=== PATIENT | female | born 1990 | race Caucasian/White ===

== ENCOUNTER 2018-02-24 06:36 | Inpatient (IN) | payer OTHER ==
--- NOTE | 2018-02-23 15:13 | PREOPHP ---
Date of Admission: 02/24/2018 History Of Present Illness: Ms. Willoughby is a 27-year-old female, 4, para 2-0- 1-2, who will be 40 weeks gestation tomorrow. She has been followed by me during this with out significant complications. Past Medical History: Please see record. Family History: Please see record. Review of Systems: She reports no recent cough, cold, fever, or chills. No recent nausea or vomiting. She denies any b reast lumps. She denies any bowel or bladder issues. She has been having a few contractions. Infan t has not been quite as active. Physical Examination: General: Reveals female, in no apparent distress. Neck: Supple without adenopathy or thyromegaly. Lungs: Clear. Cardiac: Regular rate and rhythm without murmurs. Breasts: Not examined. Abdomen: Shows an estimated weight of approximately 7+ pounds. Pelvic: Cervix noted to be 1+ cm, 50% effaced, vertex at -1 to -2 station, vertex presentation. Extremities: No cyanosis, clubbing, or edema. Impression: Term with favorable cervix. The patient will be admitted for induction of lab or. Risks are described and she has signed a permit in my presence. ORAL/ANDRA Voice ID: [id number]
[2018-02-24] MEDS ORDERED: Ringers Lactate 1,000 ML IV PRN (06:38)
[2018-02-24] MEDS ORDERED: PROMETHAZINE 25 MG/ML VIAL IV PRN (06:57)
[2018-02-24] MEDS ORDERED: BUTORPHANOL 1 MG/ML INJ IV PRN (06:57)
[2018-02-24] MEDS ORDERED: Ringers Lactate 1,000 ML IV SCH (07:00)
[2018-02-24] MEDS ORDERED: OXYTOCIN/LR 20 UNIT/1,000 ML BAG IV SCH ×2 (07:00→13:00)
[2018-02-24 07:37] LABS: RPR Titer ND
[2018-02-24 07:51] LABS: Absolute Lymphocytes (CBC) 1.8 K/uL (0.7-4.9); Absolute Monocytes 0.7 K/uL (0.1-1.3); Absolute Neutrophil 7.5 K/uL (1.8-8.0); Basophils % 0.3 % (0-1.3); Hematocrit 36.6 % (36.0-45.0); Lymphocytes % 17.9 % (15.3-44.8); MCH 28.5 pg (27.0-35.0); MCV 85.7 fL (80-100); MPV 8.8 fL (7.6-11.3); Monocytes % 6.8 % (3.3-12.3); RBC Red Blood Cell Count 4.27 M/uL (3.86-4.86)
[2018-02-24 07:53] LABS: Urine Appearance CLOUDY; Urine Bilirubin NEGATIVE (NEG); Urine Blood NEGATIVE (NEG); Urine Color YELLOW; Urine Glucose NEGATIVE (NEG); Urine Protein NEGATIVE (NEG); Urine Specific Gravity 1.015 (1.005-1.030); Urine Urobilinogen 0.2 mg/dL (0.2-1.0); Urine pH 6.5 (5.0-7.0)
[2018-02-24 08:00] LABS: Urine Microscopic Reflex ORDER UMIC
[2018-02-24 08:25] LABS: Urine Bacteria >50 /HPF (<20); Urine Culture Reflex Order NOT NEEDED; Urine RBC <5 /HPF (NONE SEEN)
--- NOTE | 2018-02-24 08:33 | P.PN ---
Date of Service: 02/24/18 Cx noted to be 1+cm, 50% , vtx minus one station. FSE applied, clear fluid noted, reactive FHT's, ctx now q3 minutes.
[2018-02-24] MEDS ORDERED: ROPIVACAINE HCL 100 ML IV PRN (08:34)
[2018-02-24] MEDS ORDERED: ROPIVACAINE HCL 0.2% 20ML AMP SQ ONE (08:34)
[2018-02-24] MEDS ORDERED: FENTANYL CITR 100 MCG/2 ML IV ONE (08:34)
[2018-02-24 08:40] VITALS: BMI 28.8
[2018-02-24] MEDS ORDERED: LIDOCAINE 1% 20 ML MDV ONE (11:09)
[2018-02-24] MEDS ORDERED: CARBOPROST TROME 250 MCG/ML IM ONE (11:10)
[2018-02-24] MEDS ORDERED: METHYLERGONOVINE 0.2MG/ML AMP IM ONE (11:10)
[2018-02-24] MEDS ORDERED: ROPIVACAINE HCL 20 ML ONE (12:36)
[2018-02-24] MEDS ORDERED: ONDANSETRON 4 MG (ODT) TAB PO PRN (12:58)
[2018-02-24] MEDS ORDERED: METHYLERGONOVINE 0.2MG/ML AMP IM PRN (12:58)
[2018-02-24] MEDS ORDERED: METHYLERGONOVINE 0.2 MG TAB PO PRN (12:58)
[2018-02-24] MEDS ORDERED: ACETAMINOPHEN 500 MG TAB PO PRN (12:58)
[2018-02-24] MEDS ORDERED: CARBOPROST TROME 250 MCG/ML IM PRN (12:58)
--- NOTE | 2018-02-24 13:02 | P.BOP ---
Preoperative diagnosis: 40wk Postoperative diagnosis: Same, delivery viable female Estimated blood loss: Less than 400ml Anesthesia: epidural Complications: Other (Shoulder dystocia) Transferred to: Other (271) Condition: Good
[2018-02-24] MEDS: IBUPROFEN 200 MG TAB PO PRN (20:13)
[2018-02-25 01:03] LABS: RPR (Rapid Plasma Reagin) NON-REACT (NON-REACT)
--- NOTE | 2018-02-25 05:20 | DN ---
Surgeon: Chato Yi MD Ms. Willoughby is a 27-year-old female, 3, para 1-0-1-1, at 40 weeks gestation, admitted f or an elective induction of labor secondary to term with favorable cervix. She was noted t o be 1+ cm on admission. After artificial rupture of membrane, she had a first stage labor of 4 hour s and 8 minutes, second stage of labor of 27 minutes. She delivered, by spontaneous controlled vagin al delivery, an 8 pound 9 ounce female infant, 9, 9 with moderate shoulder dystocia, treated wi th Renetta maneuver. was delivered. Cord was noted to be around the neck x1. After delaye d cord clamping this was clamped, cut, and infant placed on mother's upper abdomen. Cord blood was o btained. The placenta was spontaneously expelled and appeared to be intact. Intrauterine examinatio n revealed no retained placental fragments. The patient suffered no lacerations. Estimated total bl ood loss was less than 300 cc. The patient had epidural catheter placed early and received good bene fit from this. ORAL/ANDRA Voice ID: [id number] Report ID: [id number]
[2018-02-25] MEDS: IBUPROFEN 200 MG TAB PO PRN (06:01)
[2018-02-25 13:30] VITALS: BP 119/57; TEMP 97.6
--- NOTE | 2018-02-26 05:27 | DS ---
Date of Discharge: 02/25/2018 Final Hospital Discharge Diagnosis: A 40-week delivered. Complications: Shoulder dystocia, treated with Renetta maneuver. Procedures: Artificial rupture of membranes, placement of epidural catheter, spontaneous controlled vaginal delivery of viable male . Hospital Course: The patient is a 27-year-old female, 3, para 2-0-0-2 at 40 weeks gestation, admitted for elective induction. She had a vaginal delivery of 8 pounds 9 ounces male inf ant, 9 and 9 with shoulder dystocia noted at the time of delivery treated with Renetta maneuv er. Lab work obtained. She was dismissed on first day, ambulatory on a select diet with routine post vaginal delivery activity restrictions. Lab work included an admission of hemoglobin an d hematocrit of 12.2 and 36.6, dismissal hematocrit of 32.5. She is Rh positive blood type, rubella immune. She was dismissed to take ibuprofen or Tylenol for pain relief and to continue taking her pr enatal iron and vitamins, to be seen back in my office in 6 weeks and dismissed with usual post vagin al delivery activity restrictions. ORAL/ANDRA Voice ID: [id number] Report ID: [id number]
[2018-02-27 04:54] LABS: HBsAG Nonreactive (Nonreactive)
== END 2018-02-25 14:30 | disposition home or self-care (01) | DRG 775 ==
LOC: 2ND-WC 06:36
PROVIDERS: ADMIT Specialist; ATTEND Specialist
PROC: 10907ZC Drainage of Amniotic Fluid, Therapeutic from Products of Conception, Via Natural or Artificial Opening (ICD-10-PCS; principal; 2018-02-24)
PROC: 10E0XZZ Delivery of Products of Conception, External Approach (ICD-10-PCS; 2018-02-24)
DX: O66.0 Obstructed labor due to shoulder dystocia (principal); O69.81X0 Labor and delivery complicated by cord around neck, without compression, not applicable or unspecified; Z3A.40 40 weeks gestation of pregnancy; Z37.0 Single live birth
CPT/HCPCS: 36415; 81003; 81015; 85014; 85025; 86592; 86901; 87340; J2210; J2590; J2795; J3010

== ENCOUNTER 2019-01-26 20:50 | Emergency (ER) | payer OTHER ==
[2019-01-26] MEDS ORDERED: NA CHLORIDE 0.9% 1,000 ML ONE (23:29)
[2019-01-26] MEDS ORDERED: ONDANSETRON 4 MG/2 ML VIAL ONE (23:29)
[2019-01-26 23:31] LABS: Absolute Lymphocytes (CBC) 0.5 K/uL (0.7-4.9); Absolute Monocytes 0.6 K/uL (0.1-1.3); Absolute Neutrophil 11.5 K/uL (1.8-8.0); Basophils % 0.2 % (0-1.3); Eosinophils % 0.3 % (0-4.4); MPV 8.3 fL (7.6-11.3)
[2019-01-26 23:43] LABS: Albumin 4.8 g/dL (3.4-5.0); Bilirubin Direct 0.1 mg/dL (0-0.2); Bilirubin Total 0.5 mg/dL (0.2-1.0); Potassium 3.6 mmol/L (3.5-5.1); Protein, Total 8.4 g/dL (6.4-8.2)
[2019-01-27 00:01] LABS: Blood Morphology Comment NOT SEEN (NOT SEEN); Platelet Estimate ADEQ
--- NOTE | 2019-01-27 01:06 | EDPHYS ---
Physician Documentation [facility] Name: Corinna Willoughby Age: 28 yrs Sex: Female : 1990 Arrival Date: 01/26/2019 Time: 20:51 Bed 23 Private MD: ED Physician Alan Jauregui HPI: 01/27 01:01 This 28 yrs old Female presents to ER via Wheelchair with complaints of tw4 Nausea/Vomiting/Diarrhea. 01:01 The patient presents to the emergency department with nausea, vomiting, diarrhea. tw4 Onset: The symptoms/episode began/occurred today. Possible causes: unknown. Possible causes: sick contacts, by family. The symptoms are aggravated by nothing. The symptoms are alleviated by nothing. Associated signs and symptoms: The patient has no apparent associated signs or symptoms. Severity of symptoms: At their worst the symptoms were moderate in the emergency department the symptoms are unchanged. The patient has not experienced similar symptoms in the past. 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 - Social history:: Smoking status: Patient uses tobacco products, denies chronic smoking, but will smoke occasionally. - Ebola Screening: : Patient denies travel to an Ebola-affected area in the 21 days before illness onset. ROS: 01/27 01:01 Constitutional: Negative for fever, chills, and weight loss, Cardiovascular: Negative tw4 for chest pain, palpitations, and edema, Respiratory: Negative for shortness of breath, cough, wheezing, and pleuritic chest pain, Back: Negative for injury and pain, MS/Extremity: Negative for injury and deformity, Skin: Negative for injury, rash, and discoloration, Neuro: Negative for headache, weakness, numbness, tingling, and seizure. Abdomen/GI: Positive for abdominal pain, nausea and vomiting, nausea, vomiting, and diarrhea, nausea, vomiting, diarrhea, Negative for abdominal cramps, abdominal distension, anorexia, dysphagia, hematemesis, black/tarry stool, rectal pain. Exam: 01:01 Constitutional: This is a well developed, well nourished patient who is awake, alert, tw4 and in no acute distress. Head/Face: Normocephalic, atraumatic. Chest/axilla: Normal chest wall appearance and motion. Nontender with no deformity. No lesions are appreciated. Cardiovascular: Regular rate and rhythm with a normal S1 and S2. No gallops, murmurs, or rubs. Normal PMI, no JVD. No pulse deficits. Respiratory: Lungs have equal breath sounds bilaterally, clear to auscultation and percussion. No rales, rhonchi or wheezes noted. No increased work of breathing, no retractions or nasal flaring. Abdomen/GI: Soft, non-tender, with normal bowel sounds. No distension or tympany. No guarding or rebound. No evidence of tenderness throughout. Back: No spinal tenderness. No costovertebral tenderness. Full range of motion. MS/ Extremity: Pulses equal, no cyanosis. Neurovascular intact. Full, normal range of motion. Neuro: Awake and alert, GCS 15, oriented to person, place, time, and situation. Cranial nerves II-XII grossly intact. Motor strength 5/5 in all extremities. Sensory grossly intact. Cerebellar exam normal. Normal gait. Vital Signs: 01/26 21:32 BP 90 / 52; Pulse 78; Resp 16; Temp 97.3; Pulse Ox 99% on R/A; Weight 48.53 kg (R); aj1 Height 4 ft. 11 in. (149.86 cm) (R); Pain 6/10; 21:40 BP 97 / 68; Pulse 64; Resp 17 S; Pulse Ox 100% on R/A; ca1 22:15 BP 90 / 6; Pulse 66; Resp 17 S; Pulse Ox 100% on R/A; ca1 22:45 BP 100 / 59; Pulse 67; Resp 18 S; Pulse Ox 100% on R/A; ca1 23:15 BP 98 / 62; Pulse 65; Resp 18 S; Pulse Ox 100% on R/A; ca1 23:30 BP 96 / 66; Pulse 60; Resp 17 S; Pulse Ox 100% on R/A; ca1 23:30 BP 101 / 62; Pulse 63; Resp 17 S; Pulse Ox 100% on R/A; ca1 01/27 00:30 BP 99 / 53; Pulse 58; Resp 17 S; Pulse Ox 100% on R/A; ca1 00:58 BP 103 / 62; Pulse 67; Resp 17 S; Pulse Ox 100% on R/A; ca1 01/26 21:32 Body Mass Index 21.61 (48.53 kg, 149.86 cm) aj1 MDM: 01/26 23:00 Patient medically screened. tw4 01/27 01:01 Differential diagnosis: Nonspecific abd pain, gastritis, cholecystitis, pancreatitis, tw4 appendicitis. Data reviewed: vital signs, nurses notes. 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 Counseling: I had a detailed discussion with the patient and/or guardian regarding: the historical points, exam findings, and any diagnostic results supporting the discharge/admit diagnosis. Medication response: Zofran relieved the patient's nausea. Response to treatment: and as a result, I will discharge patient. Special discussion: I discussed with the patient/guardian in detail that at this point there is no indication for admission to the hospital. It is understood, however, that if the symptoms persist or worsen the patient needs to return immediately for re-evaluation. ED course: Pt states she feels better after Zofran and IVF. 01/26 22:53 Order name: Basic Metabolic Panel; Complete Time: 00:53 ca1 01/27 00:53 Interpretation: GFR 89. tw01/26 22:53 Order name: CBC with Diff; Complete Time: 00:52 ca1 01/27 00:53 Interpretation: Normal except: WBC 12.7; LYM% 4.0; DALLIN% 90.5; NEUT A 11.5. tw4 01/26 22:53 Order name: Creatinine for Radiology ca1 01/26 22:53 Order name: Hepatic Function; Complete Time: 00:52 ca1 01/27 00:52 Interpretation: Normal except: TP 8.4; GLOB 3.6. tw4 01/26 22:53 Order name: Lipase ca1 01/26 23:33 Order name: Manual Differential EDMS 01/26 22:53 Order name: IV Saline Lock; Complete Time: 23:35 ca1 01/26 22:53 Order name: Labs collected and sent; Complete Time: 23:35 ca1 Administered Medications: 01/26 23:20 Drug: NS 0.9% 1000 ml Route: IV; Rate: 1 bolus; Site: right antecubital; ca1 01/27 00:59 Follow up: IV Status: Completed infusion ca1 01/26 23:22 Drug: Zofran 4 mg Route: IVP; Site: right antecubital; ca1 01/27 00:59 Follow up: Response: No adverse reaction; Nausea is decreased ca1 Disposition: 01/27/19 01:05 Discharged to Home. Impression: Vomiting, Diarrhea, unspecified. - Condition is Stable. - Discharge Instructions: Nausea and Vomiting, Adult, Nausea and Vomiting, Adult, [id number], Diarrhea, Adult, [id number]. - Prescriptions for Lomotil 2.5- 0.025 mg Oral Tablet - take 2 tablet by ORAL route once daily As needed; 20 tablet. Zofran 4 mg Oral Tablet - take 1 tablet by ORAL route every 12 hours As needed; 20 tablet. - Medication Reconciliation Form, Thank You Letter, Antibiotic Education, Prescription Opioid Use form. - Follow up: Private Physician; When: Upon discharge from the Emergency Department; Reason: If symptoms return, Recheck today's complaints, Continuance of care. - Problem is new. - Symptoms have improved. Signatures: Dispatcher [employer] EDMS Lea Francis RN RN aj1 Alan Jauregui MD MD tw4 Deyanira Webb RN RN ca1 Corrections: (The following items were deleted from the chart) 01:17 01:05 01/27/2019 01:05 Discharged to Home. Impression: Vomiting; Diarrhea, unspecified. ca1 Condition is Stable. Forms are Medication Reconciliation Form, Thank You Letter, Antibiotic Education, Prescription Opioid Use. Follow up: Private Physician; When: Upon discharge from the Emergency Department; Reason: If symptoms return, Recheck today's complaints, Continuance of care. Problem is new. Symptoms have improved. tw4
--- NOTE | 2019-01-27 01:06 | ER ---
Nurse's Notes [facility] Name: Corinna Willoughby Age: 28 yrs Sex: Female : 1990 Arrival Date: 01/26/2019 Time: 20:51 Bed 23 Private MD: Diagnosis: Vomiting;Diarrhea, unspecified Presentation: 01/26 21:31 Presenting complaint: Significant other states: "My son had this stomach but a couple aj1 days ago and now she's catching it later this evening. She vomiting and having diarrhea." Denies fever. Reports symptoms started around 1900 today. Transition of care: patient was not received from another setting of care. Onset of symptoms was January 26, 2019 at 19:00. Risk Assessment: Do you want to hurt yourself or someone else? Patient reports no desire to harm self or others. Initial Sepsis Screen: Does the patient meet any 2 criteria? No. Patient's initial sepsis screen is negative. Does the patient have a suspected source of infection? Yes: Acute abdominal pain. Care prior to arrival: None. 21:31 Method Of Arrival: Wheelchair aj1 21:31 Acuity: TUNG 3 aj1 Triage Assessment: 21:32 General: Appears in no apparent distress. uncomfortable, ill, Behavior is calm, aj1 cooperative, appropriate for age. Pain: Complains of pain in right lower quadrant and left lower quadrant Pain currently is 6 out of 10 on a pain scale. Quality of pain is described as crampy. Neuro: Level of Consciousness is awake, alert, obeys commands, Oriented to person, place, time, situation. Cardiovascular: Patient's skin is warm and dry. Respiratory: Airway is patent Respiratory effort is even, unlabored, Respiratory pattern is regular, symmetrical. GI: Reports diarrhea, nausea, vomiting. 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 - Social history:: Smoking status: Patient uses tobacco products, denies chronic smoking, but will smoke occasionally. - Ebola Screening: : Patient denies travel to an Ebola-affected area in the 21 days before illness onset. Screenin:45 Abuse screen: Denies threats or abuse. Denies injuries from another. Nutritional ca1 screening: No deficits noted. Tuberculosis screening: No symptoms or risk factors identified. Fall Risk None identified. Assessment: 21:40 General: Appears in no apparent distress. ill, Behavior is calm, cooperative, ca1 appropriate for age. Pain: Complains of pain in abdomen Pain currently is 3 out of 10 on a pain scale. at worst was 6 out of 10 on a pain scale. Quality of pain is described as crampy, Pain began 1 day ago. Neuro: Level of Consciousness is awake, alert, obeys commands, Oriented to person, place, time, situation. Cardiovascular: Heart tones S1 S2 present Capillary refill < 3 seconds Patient's skin is warm and dry. Respiratory: Airway is patent Respiratory effort is even, unlabored, Respiratory pattern is regular, symmetrical, Breath sounds are clear bilaterally. GI: Abdomen is flat, non-distended, Bowel sounds present X 4 quads. Abd is soft X 4 quads Abdomen is tender to palpation in left lower quadrant and right lower quadrant Reports diarrhea, nausea, vomiting, since this morning. : No deficits noted. No signs and/or symptoms were reported regarding the genitourinary system. EENT: No deficits noted. No signs and/or symptoms were reported regarding the EENT system. Derm: Skin is intact, is healthy with good turgor, Skin is pink, warm \\T\\ dry. Musculoskeletal: Circulation, motion, and sensation intact. Capillary refill < 3 seconds. 22:40 Reassessment: Patient appears in no apparent distress at this time. Patient and/or ca1 family updated on plan of care and expected duration. Pain level reassessed. Patient is alert, oriented x 3, equal unlabored respirations, skin warm/dry/pink. 23:50 Reassessment: Patient appears in no apparent distress at this time. Patient is alert, ca1 oriented x 3, equal unlabored respirations, skin warm/dry/pink. Patient states feeling better. 01/27 00:54 Reassessment: Patient appears in no apparent distress at this time. Patient and/or ca1 family updated on plan of care and expected duration. Pain level reassessed. Patient is alert, oriented x 3, equal unlabored respirations, skin warm/dry/pink. Vital Signs: 01/26 21:32 BP 90 / 52; Pulse 78; Resp 16; Temp 97.3; Pulse Ox 99% on R/A; Weight 48.53 kg (R); aj1 Height 4 ft. 11 in. (149.86 cm) (R); Pain 6/10; 21:40 BP 97 / 68; Pulse 64; Resp 17 S; Pulse Ox 100% on R/A; ca1 22:15 BP 90 / 6; Pulse 66; Resp 17 S; Pulse Ox 100% on R/A; ca1 22:45 BP 100 / 59; Pulse 67; Resp 18 S; Pulse Ox 100% on R/A; ca1 23:15 BP 98 / 62; Pulse 65; Resp 18 S; Pulse Ox 100% on R/A; ca1 23:30 BP 96 / 66; Pulse 60; Resp 17 S; Pulse Ox 100% on R/A; ca1 23:30 BP 101 / 62; Pulse 63; Resp 17 S; Pulse Ox 100% on R/A; ca1 01/27 00:30 BP 99 / 53; Pulse 58; Resp 17 S; Pulse Ox 100% on R/A; ca1 00:58 BP 103 / 62; Pulse 67; Resp 17 S; Pulse Ox 100% on R/A; ca1 01/26 21:32 Body Mass Index 21.61 (48.53 kg, 149.86 cm) aj ED Course: 01/26 20:51 Patient arrived in ED. do 21:32 Triage completed. aj1 21:32 Arm band placed on. aj1 21:36 Deyanira Webb, RN is Primary Nurse. ca1 21:40 Patient has correct armband on for positive identification. Placed in gown. Bed in low ca1 position. Call light in reach. Side rails up X 1. Pulse ox on. NIBP on. 23:00 Alan Jauregui MD is Attending Physician. tw4 23:15 Inserted saline lock: 20 gauge in right antecubital area, using aseptic technique. ca1 Blood collected. 01/27 01:17 No provider procedures requiring assistance completed. IV discontinued, intact, ca1 bleeding controlled, No redness/swelling at site. Pressure dressing applied. Administered Medications: 01/26 23:20 Drug: NS 0.9% 1000 ml Route: IV; Rate: 1 bolus; Site: right antecubital; ca1 01/27 00:59 Follow up: IV Status: Completed infusion ca1 01/26 23:22 Drug: Zofran 4 mg Route: IVP; Site: right antecubital; ca1 01/27 00:59 Follow up: Response: No adverse reaction; Nausea is decreased ca1 Outcome: 01:05 Discharge ordered by . thanh 01:17 Discharged to home ambulatory. ca1 01:17 Condition: stable 01:17 Discharge instructions given to patient, Instructed on discharge instructions, follow up and referral plans. medication usage, Demonstrated understanding of instructions, follow-up care, medications, Prescriptions given X 2. 01:17 Patient left the ED. ca1 Signatures: Lea Francis RN RN aj1 Clara Gaxiola Terrence, MD MD tw4 Deyanira Webb RN RN ca1 Corrections: (The following items were deleted from the chart) 01/26 22:05 22:04 Abuse screen: Denies threats or abuse. Denies injuries from another. ca1 ca1 : 22:04 Nutritional screening: No deficits noted. ca1 ca1 : 22:04 Tuberculosis screening: No symptoms or risk factors identified. ca1 ca1 22:05 22:04 Fall Risk None identified. ca1 ca1
[2019-01-27 01:22] VITALS: TEMP 97.3
[2019-01-27 01:23] VITALS: O2SAT 100
[2019-01-27 01:30] VITALS: BP 103/62
== END 2019-01-27 01:17 | disposition home or self-care (01) ==
LOC: ER 20:50
DX: R19.7 Diarrhea, unspecified (principal); Z72.0 Tobacco use
CPT/HCPCS: 36415; 80048; 80076; 83690; 85025; 96361; 96374; 99284; J2405; J7030

== ENCOUNTER 2019-09-12 00:34 | Emergency (ER) | payer OTHER ==
[2019-09-12] MEDS ORDERED: NA CHLORIDE 0.9% 1,000 ML ONE (00:59)
[2019-09-12] MEDS ORDERED: ONDANSETRON 4 MG/2 ML VIAL ONE (00:59)
[2019-09-12 01:12] LABS: Absolute Lymphocytes (CBC) 1.8 K/uL (0.7-4.9); Basophils % 0.5 % (0-1.3); Hematocrit 37.7 % (36.0-45.0); Lymphocytes % 23.9 % (15.3-44.8); RBC Red Blood Cell Count 4.38 M/uL (3.86-4.86)
[2019-09-12 01:21] LABS: Albumin 4.1 g/dL (3.4-5.0); Bilirubin Direct 0.1 mg/dL (0-0.2); Bilirubin Total 0.4 mg/dL (0.2-1.0); Potassium 3.3 mmol/L (3.5-5.1); Protein, Total 7.7 g/dL (6.4-8.2)
--- NOTE | 2019-09-12 01:35 | ER ---
Nurse's Notes [facility] Name: Corinna Willoughby Age: 29 yrs Sex: Female : 1990 Arrival Date: 09/12/2019 Time: 00:37 Bed 8 Private MD: Diagnosis: Diarrhea, unspecified;Vomiting Presentation: 09/12 00:40 Presenting complaint: Patient states: DIARRHEA STARTED WEDNESDAY. WENT TO THE DOCTOR AND rv THEY DID SOME BLOOD WORK. I DID NOT SEE THE RESULT BUT THEY PRESCRIBED MW WITH CEFALEXIN AND TAMSULOSIN. I VOMITED ONCE. Transition of care: patient was not received from another setting of care. Onset of symptoms was September 11, 2019 at 08:00. Risk Assessment: Do you want to hurt yourself or someone else? Patient reports no desire to harm self or others. Initial Sepsis Screen: Does the patient meet any 2 criteria? No. Patient's initial sepsis screen is negative. Does the patient have a suspected source of infection? No. Patient's initial sepsis screen is negative. Care prior to arrival: None. 00:40 Method Of Arrival: Ambulatory rv 00:40 Acuity: TUNG 3 rv Triage Assessment: 00:44 General: Appears in no apparent distress. uncomfortable, Behavior is calm, cooperative. rv Pain: Denies pain. Neuro: Level of Consciousness is awake, alert, obeys commands, Oriented to person, place, time, situation. GI: Reports cramping, diarrhea, nausea, vomiting. 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 - Social history:: Smoking status: Patient uses tobacco products, denies chronic smoking, but will smoke occasionally. - Ebola Screening: : No symptoms or risks identified at this time. Screenin:00 Abuse screen: Denies threats or abuse. Nutritional screening: No deficits noted. ea Tuberculosis screening: No symptoms or risk factors identified. Fall Risk Assessment: 01:15 General: Appears in no apparent distress. Behavior is calm, cooperative, appropriate ea for age. Pain: Denies pain. Neuro: Level of Consciousness is awake, alert, obeys commands, Oriented to person, place, time, situation. Cardiovascular: Patient's skin is warm and dry. Respiratory: Airway is patent Respiratory effort is even, unlabored, Respiratory pattern is regular, symmetrical. GI: Abdomen is non-distended. Derm: Skin is pink, warm \T\ dry. 02:02 Reassessment: Patient and/or family updated on plan of care and expected duration. Pain ea level reassessed. Patient is alert, oriented x 3, equal unlabored respirations, skin warm/dry/pink. Discharge instruction given to patient, verbalized the understanding of instruction. Pt left ED ambulatory accompanied by family. Pt tolerating well. Vital Signs: 00:42 BP 114 / 55; Pulse 77; Resp 15; Temp 97; Pulse Ox 97% ; Weight 49.9 kg; Height 4 ft. 11 rv in. (149.86 cm); Pain 0/10; 01:34 BP 104 / 71; Pulse 54; Resp 18; Pulse Ox 100% on R/A; ea 00:42 Body Mass Index 22.22 (49.90 kg, 149.86 cm) rv ED Course: 00:37 Patient arrived in ED. ag3 00:42 Triage completed. rv 00:46 Kailash Randolph, SASHA is PHCP. pm1 00:46 Alan Jauregui MD is Attending Physician. pm1 00:53 Bella Shah, JERSON is Primary Nurse. ak1 00:57 Inserted saline lock: 20 gauge in right antecubital area, using aseptic technique. rv Blood collected. 01:00 Patient has correct armband on for positive identification. Bed in low position. Call ea light in reach. Side rails up X2. 01:35 Arm band placed on right wrist. Patient placed in an exam room, on a stretcher, on ea pulse oximetry. 02:03 No provider procedures requiring assistance completed. IV discontinued, intact, ea bleeding controlled, No redness/swelling at site. Pressure dressing applied. Administered Medications: 00:55 Drug: Zofran 4 mg Route: IVP; Site: right antecubital; rv 01:32 Follow up: Response: No adverse reaction ea 00:55 Drug: NS 0.9% 1000 ml Route: IV; Rate: 1000 ml; Site: right antecubital; rv 01:30 Follow up: Response: No adverse reaction; IV Status: Completed infusion ea 01:46 Not Given (Duplicate Order): Potassium Chloride 40 mEq PO once 01:46 Drug: Potassium Chloride 40 mEq Route: PO; 02:00 Follow up: Response: No adverse reaction ea Outcome: 01:34 Discharge ordered by . pm1 02:04 Discharged to home ambulatory, with family. ea 02:04 Condition: stable 02:04 Discharge instructions given to patient, Instructed on discharge instructions, follow up and referral plans. medication usage, Demonstrated understanding of instructions, follow-up care, medications, Prescriptions given X 2. 02:04 Patient left the ED. ea Signatures: Nora Perea RN RN Bella Shah RN RN ak1 Kailash Randolph, DEVELOPMENT VICE PRESIDENT DEVELOPMENT VICE PRESIDENT pm1 Juliette Stark RN RN ea Vicente, Ronaldo RN RN Jamilah Salinas3
--- NOTE | 2019-09-12 01:35 | EDPHYS ---
Physician Documentation [facility] [place] Name: Corinna Willoughby Age: 29 yrs Sex: Female : 1990 Arrival Date: 09/12/2019 Time: 00:37 Bed 8 Private MD: ED Physician Alan Jauregui HPI: 09/12 01:03 This 29 yrs old Female presents to ER via Ambulatory with complaints of pm1 Vomiting/Diarrhea. 01:03 The patient presents to the emergency department with vomiting, 1 times since the onset pm1 of symptoms, diarrhea, watery diarrhea for the past two days and improving to soft stool. Onset: The symptoms/episode began/occurred 3 day(s) ago. Possible causes: unknown. The symptoms are aggravated by nothing. The symptoms are alleviated by nothing. Associated signs and symptoms: Pertinent positives: Abdominal cramping, Pertinent negatives: dysuria, fever. Severity of symptoms: in the emergency department the symptoms have improved Pain is currently a 0 / 10. The patient has not experienced similar symptoms in the past. The patient has been recently seen by a physician: [facility] for the same symptoms and prescribed keflex and tamulosin. 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 - Social history:: Smoking status: Patient uses tobacco products, denies chronic smoking, but will smoke occasionally. - Ebola Screening: : No symptoms or risks identified at this time. ROS: 01:03 Constitutional: Negative for fever, chills, and weight loss, Eyes: Negative for injury, pm1 pain, redness, and discharge, ENT: Negative for injury, pain, and discharge, Neck: Negative for injury, pain, and swelling, Cardiovascular: Negative for chest pain, palpitations, and edema, Respiratory: Negative for shortness of breath, cough, wheezing, and pleuritic chest pain. 01:03 Back: Negative for injury and pain, : Negative for injury, bleeding, discharge, and swelling, MS/Extremity: Negative for injury and deformity, Skin: Negative for injury, rash, and discoloration, Neuro: Negative for headache, weakness, numbness, tingling, and seizure. 01:03 Abdomen/GI: Positive for diarrhea, abdominal cramps, that have resolved. Vomit x 1 today, Negative for black/tarry stool, rectal bleeding. Exam: 01:03 Constitutional: This is a well developed, well nourished patient who is awake, alert, pm1 and in no acute distress. Head/Face: Normocephalic, atraumatic. Eyes: Pupils equal round and reactive to light, extra-ocular motions intact. Lids and lashes normal. Conjunctiva and sclera are non-icteric and not injected. Cornea within normal limits. Periorbital areas with no swelling, redness, or edema. ENT: Nares patent. No nasal discharge, no septal abnormalities noted. Tympanic membranes are normal and external auditory canals are clear. Oropharynx with no redness, swelling, or masses, exudates, or evidence of obstruction, uvula midline. Mucous membranes moist. Neck: Trachea midline, no thyromegaly or masses palpated, and no cervical lymphadenopathy. Supple, full range of motion without nuchal rigidity, or vertebral point tenderness. No Meningismus. Chest/axilla: Normal chest wall appearance and motion. Nontender with no deformity. No lesions are appreciated. Cardiovascular: Regular rate and rhythm with a normal S1 and S2. No gallops, murmurs, or rubs. Normal PMI, no JVD. No pulse deficits. Respiratory: Lungs have equal breath sounds bilaterally, clear to auscultation and percussion. No rales, rhonchi or wheezes noted. No increased work of breathing, no retractions or nasal flaring. Abdomen/GI: Soft, non-tender, with normal bowel sounds. No distension or tympany. No guarding or rebound. No evidence of tenderness throughout. Back: No spinal tenderness. No costovertebral tenderness. Full range of motion. Skin: Warm, dry with normal turgor. Normal color with no rashes, no lesions, and no evidence of cellulitis. MS/ Extremity: Pulses equal, no cyanosis. Neurovascular intact. Full, normal range of motion. 01:03 Neuro: Orientation: is normal, Motor: is normal, moves all fours, Sensation: is normal, no obvious gross deficits, Gait: is steady, at a normal pace, without difficulty. Vital Signs: 00:42 BP 114 / 55; Pulse 77; Resp 15; Temp 97; Pulse Ox 97% ; Weight 49.9 kg; Height 4 ft. 11 rv in. (149.86 cm); Pain 0/10; 01:34 BP 104 / 71; Pulse 54; Resp 18; Pulse Ox 100% on R/A; ea 00:42 Body Mass Index 22.22 (49.90 kg, 149.86 cm) rv MDM: 00:46 Patient medically screened. pm1 01:33 Data reviewed: vital signs. Data interpreted: Pulse oximetry: on room air is 97 %. pm1 Interpretation: normal. Counseling: I had a detailed discussion with the patient and/or guardian regarding: the historical points, exam findings, and any diagnostic results supporting the discharge/admit diagnosis, lab results, the need for outpatient follow up, to return to the emergency department if symptoms worsen or persist or if there are any questions or concerns that arise at home. 09/12 00:49 Order name: Basic Metabolic Panel; Complete Time: : pm09/12 00:49 Order name: CBC with Diff; Complete Time: pm09/12 00:49 Order name: Creatinine for Radiology; Complete Time: : pm09/12 00:49 Order name: Hepatic Function; Complete Time: pm09/12 00:49 Order name: Lipase; Complete Time: : pm09/12 01:39 Order name: Urine Dipstick--Ancillary (enter results) [facility] 09/12 00:49 Order name: IV Saline Lock; Complete Time: 00:57 pm09/12 00:49 Order name: Labs collected and sent; Complete Time: 00:57 pm09/12 00:49 Order name: Urine Dipstick-Ancillary (obtain specimen); Complete Time: : pm09/12 01:39 Order name: Urine --Ancillary (enter results) [facility] 09/12 00:49 Order name: Urine Test (obtain specimen); Complete Time: : pm Administered Medications: 00:55 Drug: Zofran 4 mg Route: IVP; Site: right antecubital; rv 01:32 Follow up: Response: No adverse reaction ea 00:55 Drug: NS 0.9% 1000 ml Route: IV; Rate: 1000 ml; Site: right antecubital; rv 01:30 Follow up: Response: No adverse reaction; IV Status: Completed infusion ea 01:46 Not Given (Duplicate Order): Potassium Chloride 40 mEq PO once fc 01:46 Drug: Potassium Chloride 40 mEq Route: PO; fc 02:00 Follow up: Response: No adverse reaction ea Disposition: 03:43 Co-signature as Attending Physician, Alan Jauregui MD I agree with the assessment and tw4 plan of care. Disposition: 09/12/19 01:34 Discharged to Home. Impression: Diarrhea, unspecified, Vomiting. - Condition is Stable. - Discharge Instructions: Food Choices to Help Relieve Diarrhea, Adult, Nausea and Vomiting, Adult, Viral Gastroenteritis, Adult. - Prescriptions for Bentyl 20 mg Oral Tablet - take 1 tablet by ORAL route every 6 hours As needed; 20 tablet. Zofran 4 mg Oral Tablet - take 1 tablet by ORAL route every 12 hours As needed; 20 tablet. - Medication Reconciliation Form, Thank You Letter, Antibiotic Education, Prescription Opioid Use form. - Follow up: Emergency Department; When: As needed; Reason: Worsening of condition. Follow up: Private Physician; When: 2 - 3 days; Reason: Recheck today's complaints, Continuance of care, Re-evaluation by your physician. - Problem is new. - Symptoms have improved. Signatures: Dispatcher [employer] EDMS Nora Perea RN RN Kailash Randolph, MANAGER INTEGRATION MANAGER INTEGRATION pm1 Juliette Stark RN RN ea Wadley, Terrence, MD MD tw4 Channing Kwong RN RN rv Corrections: (The following items were deleted from the chart) 02:04 01:34 09/12/2019 01:34 Discharged to Home. Impression: Diarrhea, unspecified; Vomiting. ea Condition is Stable. Forms are Medication Reconciliation Form, Thank You Letter, Antibiotic Education, Prescription Opioid Use. Follow up: Emergency Department; When: As needed; Reason: Worsening of condition. Follow up: Private Physician; When: 2 - 3 days; Reason: Recheck today's complaints, Continuance of care, Re-evaluation by your physician. Problem is new. Symptoms have improved. pm1
[2019-09-12] MEDS ORDERED: POTASSIUM CL SA 10 MEQ TAB PO ONE (01:42)
[2019-09-12 02:25] VITALS: TEMP 97
[2019-09-12 02:26] VITALS: BP 104/71; O2SAT 100
[2019-09-12 02:35] LABS: Urine Blood 2+ (NEG); Urine Glucose NEGATIVE (NEG); Urine Protein TRACE (NEG); Urine Specific Gravity >1.030 (1.005-1.030)
== END 2019-09-12 02:04 | disposition home or self-care (01) ==
LOC: ER 00:34
DX: R11.10 Vomiting, unspecified (principal); R19.7 Diarrhea, unspecified; Z72.0 Tobacco use
CPT/HCPCS: 96361; 85025; 80048; 36415; 81025; 80076; 81003; 83690; 96374; 99284; J7030; J2405